=== PATIENT | male | born 1965 | race Caucasian/White ===

== ENCOUNTER 2017-04-23 00:49 | Inpatient (IN) | payer OTHER ==
[~2017-04-23] VITALS: Ht 165.1 cm; Wt 72.0 kg
--- NOTE | 2017-04-23 01:44 | NUR ---
MEDICATED PT ORDERED. PLEASE SEE EMAR.
[2017-04-23 02:15] LABS: CALCIUM 9.4 mg/dL (8.5-10.1); CARBON DIOXIDE 25.5 mmol/L (21-32); CHLORIDE SERUM 102 mmol/L (98-107); CREATININE SERUM 1.2 mg/dL (0.7-1.3); GFR1 > 60 mL/min; GLUCOSE SERUM 127 mg/dL (74-106); POTASSIUM SERUM 4.1 mmol/L (3.5-5.1); SODIUM SERUM 140 mmol/L (136-145)
[2017-04-23 02:20] LABS: ALBUMIN 3.6 g/dL (3.4-5.0); ALKALINE PHOSPHATASE 135 U/L (46-116); ALT/SGPT 57 U/L (16-63); AST/SGOT 62 U/L (15-37); LIPASE 637 IU/L (73-393)
--- NOTE | 2017-04-23 02:20 | NUR ---
PT REQUESTING PAIN MEDS BEFORE GOING TO CT. DR LANGSTON MADE AWARE.
[2017-04-23 02:21] LABS: TOTAL PROTEIN, SERUM 8.7 g/dL (6.4-8.2)
--- NOTE | 2017-04-23 02:23 | NUR ---
PT TAKEN TO CT VIA [facility].
[2017-04-23 02:25] LABS: BASOPHIL % 0.2 % (0-2); PLATELET COUNT 202 x10^3mcL (130-400)
[2017-04-23 02:27] LABS: RED CELL DISTRIBUTION WIDTH 14.8 % (11.5-14.5)
--- NOTE | 2017-04-23 02:31 | NUR ---
PT RETURNED FROM CT WITHOUT INCIDENT.
[2017-04-23 02:38] LABS: UA SPECIFIC GRAVITY >=1.030 (1.005-1.035); microscopic required? YES; urine erythrocyte NEGATIVE (NEGATIVE)
--- NOTE | 2017-04-23 03:22 | NUR ---
MEDICATED PT FOR PAIN. PLEASE SEE EMAR.
--- NOTE | 2017-04-23 06:11 | NUR ---
PT ASLEEP ON GURNEY, RESP EVEN AND UNLABORED. WILL CONTINUE TO MONITOR.
--- NOTE | 2017-04-23 06:59 | NUR ---
MEDICATED PT FOR PAIN. PLEASE SEE EMAR.
--- NOTE | 2017-04-23 07:22 | NUR ---
REPORT GIVEN TO YOSI NOLAND TO ASSUME CARE OF THE PT.
--- NOTE | 2017-04-23 08:20 | NUR ---
RECEIVED PT FROM ER STAFF. PT AWAKE ALERT ORIENTED x4. ABLE TO LET NEEDS KNOWN. PT IS MED SURG, DENIES CHEST PAIN HR:112 CLEAR BREATH SOUNDS THROUGHOOUT DENIES SOB O2SAT: 96% ON ROOM AIR. +PULSES TO ALL EXTREMITIES. PT C/O CONSTIPATION LAST BM:04/20/17. ACTIVE BOWEL SOUNDS. VOIDS WITHOUT DISCOMFORT. UA POSITIVE FOR NITRITES, MOD BACTERIA. AMBULATORY STEADY GAIT. SKIN INTACT. CALL LIGHT WITHIN REACH, BED IN LOWEST POSITION.
[2017-04-23 08:59] LABS: AMPHETAMINE QUAL UR NONE DETECTED (NEG <=1000)
[2017-04-23 09:16] LABS: MAGNESIUM 1.1 mg/dL (1.8-2.4); PHOSPHOROUS 2.8 mg/dL (2.5-4.9)
[2017-04-23 09:18] LABS: CHOLESTEROL/HDL RATIO 2.7
[2017-04-23 09:25] LABS: FREE T4 1.58 ng/dL (0.76-1.46); T4(THYROXINE) 9.9 ug/dL (4.7-13.3)
[2017-04-23 09:54] LABS: RED BLOOD CELLS 3.11 M/mm3 (4.52-5.90)
[2017-04-23 10:41] LABS: T3 TOTAL 1.13 ng/mL
[2017-04-23 11:43] LABS: IRON 57 ug/dL (65-170); TOTAL IRON BINDING CAPACITY 248 ug/dL (250-450)
--- NOTE | 2017-04-23 12:22 | NUR ---
PT STATES ABDOMINAL PAIN 09/22. REPORTS COMFORT AT THIS LEVEL. CALL LIGHT WITHIN REACH.
[2017-04-23 13:31] VITALS: BP 187/86
[2017-04-23 14:30] VITALS: BP 150/71
[2017-04-23 16:10] VITALS: BP 147/85
--- NOTE | 2017-04-23 17:15 | NUR ---
PASSED AFTERNOON MEDS. PT TOLERATED WELL. PT STATES ABDOMINAL PAIN 09/22. REPORTS COMFORT WITH PAIN LEVEL. DENIES NAUSEA, VOMITING. IV PATENT TO LAC. CALL LIGHT WITHIN REACH. FAMILY AT BEDSIDE.
--- NOTE | 2017-04-23 19:31 | NUR ---
SHIFT REASSESSMENT DONE.PATIENT ALERT AND ORIENTED.BREATHING EASY.MOVING ALL EXT WELL REPORTED.NS AT 100 CC LAC.INTACT.MEDSURG PATIENT.NO TELE.SKIN INTACT.VOIDING WELL BRP.CALL LIGHT IN REACH.
[2017-04-23 21:15] VITALS: BP 155/91
--- NOTE | 2017-04-23 21:29 | NUR ---
PATIENT GIVEN HIS ATIVAN PO AT THIS TIME,ETOH PROTOCOL,ALSO NORCO FOR PAIN,PATIENT QUIET,WATCHING TV,DO NOT WANT TO WEAR HOSPITAL GOWN.ROOM,AIR CON ON.SAYS HE IS WARM.
[2017-04-24 05:46] VITALS: BP 155/95
--- NOTE | 2017-04-24 05:51 | NUR ---
AM MEDS GIVEN,NS AT 120 CC HOUR.I AND O MEASURED.PATIENT WANTING TO TAKE A SHOWER TODAY,WILL ENDORSE TO NEXT SHIFT.CALL LITE IN REACH.
--- NOTE | 2017-04-24 06:11 | NUR ---
PATIENT NOW ON CLEAR LIQUID DIET.WILL ENDORSE TO NEXT SHIFT.
[2017-04-24 06:14] LABS: BASOPHIL % 0.4 % (0-2); PLATELET COUNT 153 x10^3mcL (130-400)
[2017-04-24 06:30] LABS: ALKALINE PHOSPHATASE 95 U/L (46-116); ALT/SGPT 34 U/L (16-63); AMYLASE 99 U/L (25-115); AST/SGOT 34 U/L (15-37); BILIRUBIN TOTAL 1.23 mg/dL (0.20-1.00); CALCIUM 8.4 mg/dL (8.5-10.1); CARBON DIOXIDE 25.6 mmol/L (21-32); CHLORIDE SERUM 105 mmol/L (98-107); CREATININE SERUM 0.9 mg/dL (0.7-1.3); GFR1 > 60 mL/min; GLUCOSE SERUM 77 mg/dL (74-106); LIPASE 240 IU/L (73-393); PHOSPHOROUS 2.6 mg/dL (2.5-4.9); POTASSIUM SERUM 4.3 mmol/L (3.5-5.1); SODIUM SERUM 141 mmol/L (136-145); TOTAL PROTEIN, SERUM 6.9 g/dL (6.4-8.2)
[2017-04-24 06:33] LABS: ALBUMIN 2.6 g/dL (3.4-5.0)
--- NOTE | 2017-04-24 07:10 | NUR ---
AAO X4.C/O MILD ABD'L PAIN AT 3/10 PAIN SCALE.LUNGS CLEAR.PT NON-TELE.IVF NS GOING AT 120 ML/HR INFUSING WELL.CALL LIGHT WITHIN REACH.INSTRUCTED TO CALL FOR ANY PAIN/DISCOMFORT.WILL CONTINUE TO MONITOR PT.
[2017-04-24 07:56] LABS: RED CELL DISTRIBUTION WIDTH 14.9 % (11.5-14.5)
[2017-04-24] MEDS ORDERED: LAC PO (11:55)
[2017-04-24] MEDS ORDERED: NOR10T PO (11:56)
[2017-04-24] MEDS ORDERED: MAC100 PO (11:56)
[2017-04-24 12:54] VITALS: BP 181/100
--- NOTE | 2017-04-24 13:30 | NUR ---
PT D/C TO HOME IV D/C'D.D/C INSTRUCTION GIVEN.PT VERBALIZES UNDERSTANDING.WENT DOWN AMBULATORY ACCOMPANIED BY RESOURCE NURSE.
== END 2017-04-24 13:31 | disposition home or self-care (01) | DRG 438 ==
LOC: ED 00:49 → MU 06:21
PROVIDERS: Emergency Medicine; ADMIT Family Medicine
DX: K85.90 Acute pancreatitis without necrosis or infection, unspecified (principal); N17.0 Acute kidney failure with tubular necrosis; E43 Unspecified severe protein-calorie malnutrition; N39.0 Urinary tract infection, site not specified; I10 Essential (primary) hypertension; Z98.1 Arthrodesis status; Z87.891 Personal history of nicotine dependence; R74.0 Nonspecific elevation of levels of transaminase and lactic acid dehydrogenase [LDH]; D64.9 Anemia, unspecified; E83.42 Hypomagnesemia; E78.5 Hyperlipidemia, unspecified; E02 Subclinical iodine-deficiency hypothyroidism; K59.00 Constipation, unspecified; F12.90 Cannabis use, unspecified, uncomplicated; F11.90 Opioid use, unspecified, uncomplicated
CPT/HCPCS: 83880; 84439; C9113; G0480; J0696; J2270; J2405; J3475; J7030; J8597; Q0092